=== PATIENT | female | born 2000 | race American Indian/Alaskan Native ===

== ENCOUNTER 2021-04-09 13:31 | Emergency (ER) | payer SELFPAY ==
[2021-04-09 13:58] VITALS: BP 125/76
--- NOTE | 2021-04-09 14:43 | Emergency Department Report ---
Chief Complaint: Urogenital-Female Stated Complaint: NIPPLE PAIN Time Seen by Provider: 04/09/21 14:19 - HPI History of Present Illness: 21-year-old female presents to ED with left nipple pain x3 days. She denies any fever, redness, swelling, discharge. She denies feeling any other masses in her breasts. Patient reports her last menstrual period was 2 weeks ago. Patient states that she is not . Patient states she took some ibuprofen which helped with the pain. - ROS Review of Systems: Comment: All other systems reviewed and negative Constitutional: denies: chills, fever Breast: denies: nipple discharge, redness, breast mass or lumps; reports: Pain - Exam Vital Signs: Vital Signs 04/09/21 13:57 Temperature 98.8 F Pulse Rate 89 Respiratory 18 Rate Blood Pressure 125/76 O2 Sat by Pulse 96 Oximetry Physical Exam: On exam, bilateral breasts appear normal. There is some very slight swelling to the left nipple, however there is no redness, induration, or discharge present. MSE screening note: Focused history and physical exam performed. Due to findings the following was ordered: ED Disposition for MSE Clinical Impression: Nipple pain, Encounter for medical screening examination Disposition: 01 HOME / SELF CARE / HOMELESS Is pt being admited?: No Condition: Stable Instructions: Breast Tenderness Referrals: [facility] [Provider Group] - 3-5 Days MARGARITA BARBOUR MD [Staff Physician] - 3-5 Days Time of Disposition: 14:46
== END 2021-04-09 15:42 | disposition home or self-care (01) ==
LOC: ED 13:31
DX: N64.4 Mastodynia (principal)
CPT/HCPCS: 99282